=== PATIENT | male | born 1975 | race Caucasian/White ===

== ENCOUNTER 2020-10-23 06:48 | Outpatient (NON) | payer OTHER, SELFPAY ==
[2020-10-23 23:39] LABS: SARS-CoV-2 RNA PCR Positive
== END 2020-10-23 06:49 ==
PROVIDERS: PCP Family Medicine Adolescent Medicine; Visit Provider Family Medicine Adolescent Medicine
DX: U07.1 COVID-19 (principal)
CPT/HCPCS: C9803; U0003

== ENCOUNTER 2022-07-22 23:52 | Emergency (ER) | payer OTHER, SELFPAY ==
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
[2022-07-23] VITALS: BP 168/105; PULSE 88; RESP 20; TEMP 36.5; O2SAT 100
--- NOTE | 2022-07-23 00:05 | ECG_ITS ---
Measurements Intervals [place] Rate: 83 P: 70 [place]: 151 QRS: 65 QRSD: 97 T: 67 QT: 365 QTc: 430 Interpretive Statements SINUS RHYTHM NORMAL ECG COMPARED TO ECG 01/01/2019 15:41:50 NO SIGNIFICANT CHANGES Electronically Signed On 07-23-2022 10:22:15 CDT by Black Watts M.D.
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
[2022-07-23] MEDS: KETOROLAC 30 MG/ML VIAL (*BKC) IV PUSH (00:30)
[2022-07-23] MEDS: SODIUM CHLORIDE 0.9% IV 1,000 ML 999 ML IV CONT (00:30)
[2022-07-23 01:07] LABS: Hematocrit 34.9 % (40.0-54.0); Hemoglobin 11.1 g/dL (14.0-18.0); Mean Corpuscular HGB Conc 31.8 g/dL (32.0-36.0); Mean Corpuscular Hemoglobin 25.8 pg (27.0-31.0); Platelet Count Result 537 K/mm3 (150-420); Red Blood Count 4.31 M/mm3 (4.70-6.10); Red Cell Distribution Width 16.2 % (11.6-14.4)
[2022-07-23 01:08] LABS: Appearance Urine Clear (Clear); Bilirubin Urine Negative (Negative); Glucose Urine UA 3+ (Negative); Ketones Urine Trace (Negative); Leukocyte Esterase Ur Negative (Negative); Nitrate Urine Negative (Negative); Protein Urine Negative (Negative); Specific Grav Ur <= 1.005 (1.010-1.020); Urobilinogen Urine 0.2 mg/dL (0.2-1.0)
[2022-07-23 01:16] LABS: White Blood Count 21.5 K/mm3 (4.8-10.8)
[2022-07-23 01:31] LABS: Add Urine Microscopic? YES; Blood Urine Trace-lysed (Negative); Color Urine Light Yellow (Yellow); RBC Urine 0-2 /hpf (0-2)
[2022-07-23 01:32] LABS: Alanine Aminotransferase 43 U/L (16-63); Albumin Level 3.3 g/dL (3.4-5.0); Alkaline Phosphatase 168 U/L (46-116); Anion Gap 13 mmol/L (8-16); Aspartate Amino Transferase 61 U/L (15-37); Bilirubin,Total 0.3 mg/dL (0.00-1.00); Blood Urea Nitrogen 6 mg/dL (7-18); Calcium 8.2 mg/dL (8.5-10.1); Carbon Dioxide 24 mmol/L (21-32); Chloride 99 mmol/L (98-108); Creatine Kinase 98 U/L (39-308); Estimated CRCL calculation 74 ml/min; Estimated Glomerular Filt Rate > 60; Ethanol 145 mg/dL (0-6); Glucose 374 mg/dL (70-99); Osmolality Calculated 294 mOsm/kg (285-295); Sodium 136 mmol/L (136-145); Total Protein 6.7 g/dL (6.4-8.2)
[2022-07-23 01:49] VITALS: BP 160/89; PULSE 97; RESP 18; TEMP 36.7; O2SAT 100
[2022-07-23 02:02] LABS: Band Neutrophils Percent 0 % (0-6); Basophils Percent Manual 0 % (0-1); Eosinophils Absolute Manual 0.64 K/mm3 (0.02-0.5); Eosinophils Percent Manual 3 % (1-6); Lymphocytes Absolute Manual 2.79 K/mm3 (1.1-4.5); Lymphocytes Percent Manual 13 % (18-44); Monocytes Absolute Manual 0.86 K/mm3 (0.1-0.90); Monocytes Percent Manual 4 % (3-9); Neutrophils Percent Manual 80 % (46-73); Platelet Estimate Increased (Adequate); Total Cells Counted 100
[2022-07-23 02:03] LABS: Anisocytosis 2+ (NORMAL); Macrocytosis 1+ (NORMAL); Microcytosis 1+ (NORMAL); Poikilocytosis 2+ (NORMAL); Spherocytes 1+ (NORMAL); Target Cells 1+ (NORMAL)
[2022-07-23 02:04] LABS: Burr Cells 1+ (NORMAL); Ovalocytes 1+ (NORMAL); Schistocytes 1+ (NORMAL)
== END 2022-07-23 01:57 | disposition home or self-care (01) ==
PROVIDERS: Emergency Provider Emergency Medicine; PCP Family Medicine Adolescent Medicine
DX: T14.8XXA Other injury of unspecified body region, initial encounter (principal); J40 Bronchitis, not specified as acute or chronic; E11.9 Type 2 diabetes mellitus without complications; S39.012A Strain of muscle, fascia and tendon of lower back, initial encounter; V89.2XXA Person injured in unspecified motor-vehicle accident, traffic, initial encounter
CPT/HCPCS: 36415; 70450; 71250; 72125; 74176; 80053; 80307; 81001; 82550; 85025; 85055; 93005; 96361; 96374; 99284; J1885; J7030; J7120; L0150